=== PATIENT | female | born 1950 | race Caucasian/White ===

== ENCOUNTER 2017-12-09 18:30 | Emergency (ER) | payer MEDICAID ==
[~2017-12-09] VITALS: Ht 160 cm; Wt 70.8 kg
[~2017-12-09 18:30] MED LIST: CRESTOR10 MG PO; ENBREL; FLEXERIL PO; FOLIC ACID; LEVAQUIN 750 M750 MG PO; METHOTREXATE PO; NORCO 5-325 TA1 EACH PO; PREDNISONE; PREDNISONE50 MG PO; VENTOLIN HFA 1818 GM INH
[2017-12-09 19:24] LABS: URINE BILIRUBIN NEGATIVE (Negative); URINE BLOOD NEGATIVE (Negative); URINE CLARITY CLEAR; URINE COLOR YELLOW; URINE GLUCOSE-RANDOM NEGATIVE (Negative); URINE KETONES NEGATIVE (Negative); URINE LEUKOCYTES-REFLEX NEGATIVE (Negative); URINE NITRITE-REFLEX NEGATIVE (Negative); URINE PROTEIN NEGATIVE (Negative); URINE UROBILINOGEN 0.2 E.U./dl (0.2-1.0)
[2017-12-09 19:52] LABS: INFLUENZA A ANTIGEN None Detected (None Detect)
[2017-12-09] MEDS ORDERED: MEDROLDOSEPACK PO (20:03)
[2017-12-09] MEDS ORDERED: OSELB75 PO (20:03)
[2017-12-09] MEDS ORDERED: BENZONATATE200 MG PO (20:03)
[2017-12-09] MEDS ORDERED: VENTOLIN HFA INH8 GM INH (20:04)
[2017-12-09 20:14] VITALS: BP 128/74
== END 2017-12-09 20:17 | disposition home or self-care (01) ==
LOC: M.ERS 18:30
PROVIDERS: Nurse Practitioner
DX: J10.1 Influenza due to other identified influenza virus with other respiratory manifestations (principal); M19.90 Unspecified osteoarthritis, unspecified site; Z88.0 Allergy status to penicillin; Z88.2 Allergy status to sulfonamides

== ENCOUNTER 2018-02-08 17:21 | Inpatient (IN) | payer OTHER, MEDICAID ==
[~2018-02-08] VITALS: Ht 160 cm; Wt 73.9 kg
[~2018-02-08 17:21] MED LIST changes: +BENZONATATE200 MG PO; +MEDROLDOSEPACK PO; +OSELB75 PO; +VENTOLIN HFA INH8 GM INH
[2018-02-08 17:52] VITALS: BP 108/69
[2018-02-08] MEDS ORDERED: PREDNISONE 20 M20 MG PO (17:57)
[2018-02-08] MEDS ORDERED: ALEVE220 MG PO (17:58)
[2018-02-08] MEDS ORDERED: VITAMIN D3400 UNIT PO (17:59)
[2018-02-08 18:39] LABS: HEMATOCRIT 44.4 % (37.0-47.0); HEMOGLOBIN 14.9 gm/dL (12.0-15.0); MCH 33.3 pg (26.0-34.0); MCHC 33.5 g/dL (28.0-37.0); MCV 99.2 fL (80.0-100.0); MPV 8.3 fl. (7.2-11.1); NUCLEATED RBCS 0 /100WBC; PLATELET COUNT* 222 thou/uL (150-400); RBC 4.47 mil/uL (4.20-5.00); RDW-CV 15.2 % (10.5-14.5); WBC 13.5 thou/uL (4.0-11.0)
[2018-02-08 18:53] LABS: ANION GAP 8 mmol/L (7-16); BUN 27 mg/dL (7-18); CALCIUM 8.9 mg/dL (8.5-10.1); CHLORIDE 103 mmol/L (98-107); CO2 28 mmol/L (21-32); CREATININE 0.8 mg/dL (0.6-1.3); GLUCOSE 134 mg/dL (70-99); POTASSIUM 3.9 mmol/L (3.5-5.1); SODIUM 139 mmol/L (136-145)
[2018-02-08 19:11] LABS: ALBUMIN 2.7 g/dL (3.4-5.0); ALKALINE PHOSPHATASE 97 U/L (46-116); LIPASE 110 U/L (73-393); NT-PRO BRAIN NAT PEPTIDE 220 pg/mL (<300); SGOT 15 U/L (15-37); SGPT 16 U/L (30-65); TOTAL BILIRUBIN 0.8 mg/dL (<0.1-1.0); TOTAL PROTEIN 5.9 g/dL (6.4-8.2); TROPONIN-I LEVEL <0.06 ng/mL (<0.06)
[2018-02-08 19:15] LABS: ABSOLUTE EOSINOPHILS 0.4 thou/uL (0.0-0.7); ABSOLUTE LYMPHOCYTES 2.7 thou/uL (0.8-5.3); ABSOLUTE MONOCYTES 0.9 thou/uL (0.0-1.2); ABSOLUTE NEUTROPHILS 9.5 thou/uL (1.6-8.1)
[2018-02-08 19:17] LABS: CLUMPED PLTS OCCASIONAL
[2018-02-08 19:18] LABS: PLATELET ESTIMATE ADEQUATE
[2018-02-08 20:06] LABS: URINE BLOOD NEGATIVE (Negative); URINE CLARITY CLEAR; URINE COLOR DARK YELLOW; URINE GLUCOSE-RANDOM NEGATIVE (Negative); URINE KETONES TRACE (Negative); URINE LEUKOCYTES-REFLEX NEGATIVE (Negative); URINE PROTEIN TRACE (Negative); URINE SPECIFIC GRAVITY >= 1.030 (1.005-1.030)
[2018-02-08 20:08] LABS: URINE BILIRUBIN 1+ (Negative); URINE NITRITE-REFLEX POSITIVE (Negative)
[2018-02-08 20:09] LABS: ICTOTEST (BILI CONFIRMATORY) Negative (Negative)
[2018-02-08 20:15] LABS: BACTERIA-REFLEX >30 Many /HPF (None Seen); HYALINE CASTS 0-3 Few /LPF (None Seen); MUCUS 0-3 Light strn/LPF (None Seen); SQUAMOUS >10 Many /LPF (0-3)
[2018-02-08 20:16] LABS: URINE WBC-REFLEX 6-15 Few /HPF (0-5)
[2018-02-08 20:17] LABS: CRYSTALS None Seen /LPF (None Seen); URINE RBC None Seen /HPF (0-2)
[2018-02-08 21:14] LABS: INR 1.1; PROTIME 10.6 Seconds (9.20-11.50)
[2018-02-08 22:55] VITALS: BP 128/67
[2018-02-08 23:59] VITALS: BP 126/91
--- NOTE | 2018-02-09 00:11 | NUR ---
RECEIVED REPORT FROM ER NURSE AND PATIENT HERE FROM ER AND ADMITTED TO [facility]TH[facility] AT APPROXIMATELY 2310. VSS ON 2L 02. PATIENT ORIENTED TO ROOM AND POLICIES AND FALL EDUCATION GIVEN AND FALL AGREEMENT SIGNED. PATIENT VERBALIZED UNDERSTANDING. ASSESSMENT CHARTED. PATIENT RESTING COMFORTABLY. INSTRUCTED TO USE CALL LIGHT WHEN NEEDING ASSISTANCE. HOURLY ROUNDS MADE. WILL CONTINUE WITH PLAN OF CARE AND NURSING TO MONITOR.
--- NOTE | 2018-02-09 04:55 | NUR ---
PATIENT HAS RESTED WELL SINCE BEING ADMITTED TO UNIT. PAIN WELL CONTROLLED. VSS ON 2L 02 VIA NASAL CANNULA. NO NAUSEA OR VOMITING. IV IN RIGHT AC-NS @ 100ML/HR. PATIENT INSTRUCTED TO USE CALL LIGHT WHEN NEEDING ASSISTANCE. HOURLY ROUNDS MADE. WILL CONTINUE WITH PLAN OF CARE AND NURSING TO MONITOR.
[2018-02-09 08:57] VITALS: BP 114/67
--- NOTE | 2018-02-09 15:42 | NUR ---
SW met with pt to complete initial assessment, introduce self, and SW role. Pt lives at home with her dtr...Pt said that her dtr is in room 316 of the hospital right now. Pt has RW and was independent with ADLs and mobility prior to hospitalization. SW to continue to follow.
[2018-02-09 16:00] VITALS: BP 136/79
--- NOTE | 2018-02-09 16:28 | EKG ---
[place] [address] ELECTROCARDIOGRAM REPORT Name: JOSIE BURGESS Room: [address] ADM IN [facility].#: [id number] Admission: 02/08/18 Attend Phys: Genevieve Becerra Discharge: Date of : 48 Report #: [id number] THIS REPORT FOR: //name// [facility] ED Test Date: 2018-02-08 Test Time: 19:40:18 Pat Name: JOSIE BURGESS Department: Room: [facility] Gender: F Physical Education Instructor: AMEYA : 1950 Requested By: Anna Avitia Order Number: [id number] MD: Fabricio Palma Measurements Intervals [place] Rate: 98 P: 66 CO: 138 QRS: 55 QRSD: 77 T: 93 QT: 318 QTc: 406 Interpretive Statements Sinus rhythm Borderline repolarization abnormality Compared to ECG 11/09/2014 09:26:30 No significant changes Electronically Signed On 02-09-2018 16:28:40 CDT by Fabricio Palma [email or web address] <ELECTRONICALLY SIGNED> By: Fabricio Palma MD, [facility] 02/09/18 1628 39 39 Fabricio Palma MD, [facility] /EPI
[2018-02-09 20:00] VITALS: BP 132/75
--- NOTE | 2018-02-09 20:41 | NUR ---
ASSUMED CARES OF PT AT 0700. PT IN BED, BED IN LOW LOCKED POSITION. FALL PRECAUTIONS IN PLACE. CALL BUTTON AND PERSONAL ITEMS IN PT REACH. PT A&O X4, HRRR PER AUSCULTATION, LUNGS CLEAR TO DIMINISHED PER AUSCULTATION ON 2L O2 NC. VSS ON O2. RESPIRATIONS OCC ABOVE 20 BREATHS PER MINUTE. AFEBRILE, PERRLA, SKIN INTACT, NO EDEMA, PULSES RADIAL AND PEDAL WNL. UP ASSIST X1/SBA TO BATHROOM/BSC. NEW IV IN LEFT WRIST 22 GAUGE PATENT WITH FLUIDS INFUSING WELL. PT DENIES PAIN AND NAUSEA THIS SHIFT. NON PRODUCTIVE COUGH REPORTED/PAINFUL, MUCINEX ORDERED PER PHYSICIAN. GOOD APPETITE AND FLUID INTAKE. PT USES CALL BUTTON APPROPRIATELY. HOURLY ROUNDING COMPLETED. REPORT TO BEVERAGE DISTILLER FOR CONTINUED CARES. PT PLEASANT AND COOPERATIVE. PT PROGRESSING TOWARDS GOAL. ACTIVE SMOKER FOR MORE THAN 50 YEARS, NOT INTERESTED IN STOPPING NOW.
--- NOTE | 2018-02-09 22:07 | NUR ---
THIS NURSE ASSUMES CARE OF PT AT 1930, PT RESTING IN BED TALKING ON TELEPHONE, DENIES PAIN, ASSESSMENT COMPLETE, NO S/S ACUTE DISTRESS AT THIS TIME
[2018-02-10 05:27] LABS: HEMATOCRIT 32.9 % (37.0-47.0); MCH 33.8 pg (26.0-34.0); MCHC 33.9 g/dL (28.0-37.0); MCV 99.8 fL (80.0-100.0); MPV 8.5 fl. (7.2-11.1); RBC 3.3 mil/uL (4.20-5.00); RDW-CV 14.9 % (10.5-14.5); WBC 9.6 thou/uL (4.0-11.0)
[2018-02-10 05:37] LABS: HEMOGLOBIN 11.1 gm/dL (12.0-15.0)
[2018-02-10 05:39] LABS: CALCIUM 7.9 mg/dL (8.5-10.1); CREATININE 0.7 mg/dL (0.6-1.3); MAGNESIUM 1.8 mg/dL (1.8-2.4); POTASSIUM 4.3 mmol/L (3.5-5.1)
[2018-02-10 07:35] VITALS: BP 127/68
[2018-02-10 09:19] VITALS: BP 127/68
--- NOTE | 2018-02-10 12:20 | NUR ---
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 Pt stated she has been eating well, good appetite, usual wt is 163#. No apparent physical indicators of malnutrition. Regular diet. Alb 2.7, prealb 15.1, BG WNL. RX: prednisone, D3. H/o COPD, steroid dependency, UTI, smoker. Pt appears at low nutrition risk at this time. She did ask for some info on low K+ diet for her daughter on HD. RD will deliver some basic informative handouts for pt.
[2018-02-10 16:49] VITALS: BP 135/75
--- NOTE | 2018-02-10 17:28 | NUR ---
ASSUMED CARE OF PATIENT AFTER MORNING REPORT. ALERT AND ORIENTED X4. ASSESSMENT COMPLETED AND CHARTED. VSS ON 2 LITERS 02. PATIENT HAS HAD NO COMPLAINTS OF NAUSEA, PAIN OR SOA THIS SHIFT. FLUIDS INFUSED ORDERED UNTIL DR DISCONTINUED. ANTIBIOTICS INFUSED ORDERED. PATIENT IS RESTING COMFRTABLY IN BED AT THIS TIME. HOURLY ROUNDS MAINTAINED, CALL LIGHT IS WITHIN REACH AND NUSRSING WILL CONTINUE TO MONITOR.
[2018-02-10 22:53] VITALS: BP 150/63
--- NOTE | 2018-02-11 06:05 | NUR ---
ASSESSMENT COMPLETE. PT SLEPT THROUGH THE NIGHT WITHOUT ANY CONCERNS. PT DENIES PAIN AND N/V. PT IS ON 2L PER NC WHICH SHE STATES SHE DOES NOT WEAR AT HOME. PT HAS IV SALINE LOCKED. PT IS UP AD ADELSO WITH A STEADY GAIT. SEE ASSESSMENT AND VITALS FOR OTHER DETAILS. CALL LIGHT WITHIN REACH, WILL CONTINUE PLAN OF CARE
[2018-02-11] MEDS ORDERED: CEFUROXIME250 MG PO (08:11)
[2018-02-11 08:30] VITALS: BP 183/92
[2018-02-11 09:58] VITALS: BP 183/92
--- NOTE | 2018-02-11 10:12 | NUR ---
ASSUMED CARE OF PATIENT AFTER MORNING REPORT. ALERT AND ORIEMTED X4. ASSESSMENT COMPLETED AND CHARTED. VSS ON 2 LITERS 02. PATIENT HAD NO COMPLAINTS OF PAIN, NAUSEA, OR SOA THIS SHIFT. PATIENT ANXIOUS TO DISCHARGE AND STOOD AT THE DESK UNTIL DISCHARGE PAPERWORK WAS FINISHED IN A HURRY. PATIENT TOOK ALL PERSONAL BELONGINGS, PRESCRIPSTION AND DISCHARGE PAPERS SIGNED AND COPIES GIVE AT THE THE DESK. PATIENT LEFT WITH AN UNRELATED ADULT AND WAS AMBULATORY SHE LEFT THE HOSPITAL AT 1005.
== END 2018-02-11 10:05 | disposition home or self-care (01) | DRG 872 ==
LOC: M.ERS 17:21 → M.ORTHSURG 21:30 → M.TBA-ER 21:30 → M.ORTHSURG 22:58
PROVIDERS: Internal Medicine; Nurse Practitioner Family; ADMIT Internal Medicine
DX: A41.9 Sepsis, unspecified organism (principal); N39.0 Urinary tract infection, site not specified; E27.3 Drug-induced adrenocortical insufficiency; E44.1 Mild protein-calorie malnutrition; R18.8 Other ascites; M19.90 Unspecified osteoarthritis, unspecified site; M06.9 Rheumatoid arthritis, unspecified; I73.9 Peripheral vascular disease, unspecified; J44.9 Chronic obstructive pulmonary disease, unspecified; F17.210 Nicotine dependence, cigarettes, uncomplicated; N81.10 Cystocele, unspecified; T38.0X5A Adverse effect of glucocorticoids and synthetic analogues, initial encounter; Y92.89 Other specified places as the place of occurrence of the external cause; Z79.51 Long term (current) use of inhaled steroids; Z79.899 Other long term (current) drug therapy; Z88.0 Allergy status to penicillin; Z88.1 Allergy status to other antibiotic agents; Z88.2 Allergy status to sulfonamides

== ENCOUNTER 2018-03-21 21:37 | Observation (INO) | payer OTHER, MEDICAID ==
[~2018-03-21] VITALS: Ht 152.4 cm; Wt 76.4 kg
[~2018-03-21 21:37] MED LIST changes: +ALEVE220 MG PO; +CEFUROXIME250 MG PO; +PREDNISONE 20 M20 MG PO; +VITAMIN D3400 UNIT PO
[2018-03-21 21:45] VITALS: BP 125/84
[2018-03-21 22:27] LABS: ABSOLUTE BASOPHILS 0.1 thou/uL (0.0-0.2); ABSOLUTE EOSINOPHILS 0.3 thou/uL (0.0-0.7); ABSOLUTE LYMPHOCYTES 3.2 thou/uL (0.8-5.3); ABSOLUTE MONOCYTES 0.4 thou/uL (0.0-1.2); BASOPHILS 1.4 %; EOSINOPHILS 3.4 %; HEMOGLOBIN 14.4 gm/dL (12.0-15.0); LYMPHOCYTES 31.4 %; MCH 33.3 pg (26.0-34.0); MCHC 33.6 g/dL (28.0-37.0); MCV 99.2 fL (80.0-100.0); MONOCYTES 4.4 %; MPV 8.4 fl. (7.2-11.1); NUCLEATED RBCS 0 /100WBC; PLATELET COUNT* 244 thou/uL (150-400); POLYS 59.4 %; RBC 4.33 mil/uL (4.20-5.00); RDW-CV 14.5 % (10.5-14.5); WBC 10.1 thou/uL (4.0-11.0)
[2018-03-21 22:34] LABS: BE 2.7 mmol/L (-2 to +3); PCO2 40.5 mmHg (35.0-45.0); pH 7.442 (7.340-7.450)
[2018-03-21 22:37] LABS: ANION GAP 7 mmol/L (7-16); BUN 13 mg/dL (7-18); CALCIUM 9.3 mg/dL (8.5-10.1); CHLORIDE 102 mmol/L (98-107); CO2 30 mmol/L (21-32); GLUCOSE 146 mg/dL (70-99); POTASSIUM 3.8 mmol/L (3.5-5.1); SODIUM 139 mmol/L (136-145)
[2018-03-21 22:43] LABS: ALKALINE PHOSPHATASE 95 U/L (46-116); MAGNESIUM 1.6 mg/dL (1.8-2.4); SGOT 11 U/L (15-37); SGPT 18 U/L (30-65); TOTAL BILIRUBIN 0.4 mg/dL (<0.1-1.0); TOTAL PROTEIN 6.5 g/dL (6.4-8.2)
[2018-03-21 23:02] LABS: TROPONIN-I LEVEL <0.06 ng/mL (<0.06)
[2018-03-21 23:14] LABS: URINE BILIRUBIN NEGATIVE (Negative); URINE BLOOD NEGATIVE (Negative); URINE CLARITY CLEAR; URINE COLOR YELLOW; URINE GLUCOSE-RANDOM NEGATIVE (Negative); URINE KETONES NEGATIVE (Negative); URINE LEUKOCYTES-REFLEX TRACE (Negative); URINE PROTEIN NEGATIVE (Negative); URINE SPECIFIC GRAVITY 1.025 (1.005-1.030); URINE UROBILINOGEN 0.2 E.U./dl (0.2-1.0)
[2018-03-21 23:15] LABS: URINE NITRITE-REFLEX POSITIVE (Negative)
[2018-03-21 23:24] LABS: BACTERIA-REFLEX >30 Many /HPF (None Seen); CASTS None Seen /LPF (None Seen); MUCUS 4-6 Moderate strn/LPF (None Seen); SQUAMOUS 4-10 Moderate /LPF (0-3); URINE RBC 3-10 Few /HPF (0-2); WBC CLUMPS Few (None Seen)
[2018-03-21 23:25] LABS: CRYSTALS None Seen /LPF (None Seen)
[2018-03-21 23:41] VITALS: BP 117/68
[2018-03-22] VITALS: BP 116/62
--- NOTE | 2018-03-22 02:06 | NUR ---
PT GOT ADMITTED ON THE FLOOR FROM THE ER . ARRIVED AT 23:50 ON A STRECHER WITH O2 2 L NC. AND IV FLUID RUNNING WIDE OPEN. PT IS ALERT AWAKE ORIENTED X4. VITAL SIGNS WITHIN NORMAL LIMIT. ADMISSION ASSESSMENT AND HISTORY PERFORMED. PT DOES NOT COMPLAIN ABOUT PAIN. SINUS RYTHM ON THE WOOD CUTTER. ON 2 L NC SATURATION IS 96%. LUNG SOUNDS ARE WHEEZY, SO I STARTED THE NS AT 150CC.HR ORDERED ON DEC. IV ANTIBIOTIC RUNNING WELL THROUGH LEFT FOREARM LINE WHICH IS PATENT. TEMPERATURE IS NORMAL. 98.5. PT SAYS THAT SHE IS A CURRENT HEAVY SMOKER, COMMUNICATED NEED TO STOP SMOKING. SHE REFUSES SCDS. NEW ADMIT ORDERS ARE ENTERED ON COMPUTER. BLOOD GAS LABS ARE CRITICAL. LACTIC ACID 2.5. TROPONIN AND EKG Q 6 HOURS TO BE MONITORED. WILL CONTINUE TO MONITOR
[2018-03-22 04:24] VITALS: BP 146/59
--- NOTE | 2018-03-22 06:20 | NUR ---
PT IS CURRENTLY SLEEPING. IV NS RUNNING AT 150CC/HR.
[2018-03-22 08:00] VITALS: BP 128/80
[2018-03-22] MEDS ORDERED: PREDNISONE 10 M10 MG PO (09:00)
[2018-03-22] MEDS ORDERED: CEFUROXIME250 MG PO (09:00)
--- NOTE | 2018-03-22 10:30 | NUR ---
MET WITH PT TO DISCUSS HOME SITUATION/DC PLANNING. PT LIVES [place] DTR. SHE IS NORMALLY INDEPEDENT AND ACTIVE. HAS WALKER BUT DOESN'T USE IT. SHE SEES A DR [facility]. K PT PLASN TO RETURN HOME AT DC. DENIES NEEDS
[2018-03-22 11:16] VITALS: BP 128/80
[2018-03-22 11:19] VITALS: BP 128/80
[2018-03-22 11:28] VITALS: BP 144/67
--- NOTE | 2018-03-22 11:43 | EKG ---
[place] [address] ELECTROCARDIOGRAM REPORT Name: JOSIE BURGESS Room: [address]#: [id number] Admission: 03/21/18 Attend Phys: Porfirio Avila Discharge: Date of : 48 Report #: [id number] THIS REPORT FOR: //name// [facility] ED Test Date: 2018-03-21 Test Time: 22:34:11 Pat Name: JOSIE BURGESS Department: Room: Gender: F Contact Officer: : 1950 Requested By: Leyda Menchaca Order Number: [id number] MD: Jean Arenas Measurements Intervals [place] Rate: 91 P: 31 NV: 137 QRS: 9 QRSD: 81 T: 63 QT: 373 QTc: 459 Interpretive Statements Sinus rhythm Minimal ST depression, lateral leads Compared to ECG 02/08/2018 19:40:18 ST (T wave) deviation now present Electronically Signed On 03-22-2018 11:43:24 CDT by Jean Arenas [email or web address] <ELECTRONICALLY SIGNED> By: Jean Arenas MD, [facility] 03/22/18 1143 [id number] Jean Arenas MD, [facility] /EPI
--- NOTE | 2018-03-22 12:48 | NUR ---
RECEIVED REPORT FROM INDERJIT LOPEZ. ASSUMED CARE OF PT AROUND 729. PT A&OX4, VSS, O2 SAT 94% ON 2L NC - PT STATES SHE DOES NOT WEAR O2 AT HOME. O2 SATS >90% ON RA. CAMPAIGN DEVELOPER IN PLACE TRACING SR. AM ASSESSMENT AND VITALS COMPLETED CHARTED. PT DENIES PAIN OR DISCOMFORT. PT EATING AND DRINKIG WITHOUT ISSUE. DISCHHARGE ORDERS RECEIVED. DISCHARGE COMPLETED CHARTED. DISCHARGE SUMMARY AND CARE NOTES GONE OVER WITH THE PT - PT COMMUNICATES UNDERSTANDING. SCRIPTS GIVEN. PT AWARE TO COMPLETED PREDNISONE TAPER PRIOR TO RESUMING REGULAR DAILY DOSE OF PREDNISONE. PT AWARE TO TAKE ALL ANTIBIOTIC. IV AND CAMPAIGN DEVELOPER REMOVED. ALL BELONGINGS GATHERED AND SENT WITH THE PT. PT LEFT UNIT IN WC WITH NURSING STAFF. PT LEFT HOSPITAL WITH DAUGHTER IN CAR.
== END 2018-03-22 13:04 | disposition home or self-care (01) ==
LOC: M.ERS 21:37 → M.TBA-ER 23:04 → M.2W 23:04
PROVIDERS: Personal Emergency Response Attendant; ADMIT Internal Medicine
DX: M25.50 Pain in unspecified joint (principal); M06.9 Rheumatoid arthritis, unspecified; J44.9 Chronic obstructive pulmonary disease, unspecified; I73.9 Peripheral vascular disease, unspecified; E87.2 Acidosis; M80.08XA Age-related osteoporosis with current pathological fracture, vertebra(e), initial encounter for fracture; Z79.899 Other long term (current) drug therapy

== ENCOUNTER 2018-08-03 21:57 | Emergency (ER) | payer OTHER, MEDICAID ==
[~2018-08-03] VITALS: Ht 160 cm; Wt 74.4 kg
[~2018-08-03 21:57] MED LIST changes: +PREDNISONE 10 M10 MG PO
[2018-08-03] MEDS ORDERED: PREDNISONE 10 M10 MG PO (22:10)
[2018-08-03] MEDS ORDERED: TYLENOL325 MG (22:11)
[2018-08-03] MEDS ORDERED: CEFDINIR300 MG PO (22:39)
[2018-08-03] MEDS ORDERED: LIDOCAINE VISC100 ML PO (22:40)
[2018-08-03 23:35] VITALS: BP 147/89
== END 2018-08-03 23:35 | disposition home or self-care (01) ==
LOC: M.ERS 21:57
DX: H66.91 Otitis media, unspecified, right ear (principal); J20.9 Acute bronchitis, unspecified; M19.90 Unspecified osteoarthritis, unspecified site; J44.9 Chronic obstructive pulmonary disease, unspecified; F17.210 Nicotine dependence, cigarettes, uncomplicated; Z88.0 Allergy status to penicillin; Z88.2 Allergy status to sulfonamides; Z91.011 Allergy to milk products

== ENCOUNTER 2018-11-15 19:05 | Emergency (ER) | payer OTHER, MEDICAID ==
[~2018-11-15] VITALS: Ht 160 cm; Wt 74.8 kg
[~2018-11-15 19:05] MED LIST changes: +CEFDINIR300 MG PO; +LIDOCAINE VISC100 ML PO; +TYLENOL325 MG
[2018-11-15 20:13] LABS: INFLUENZA A ANTIGEN None Detected (None Detect); INFLUENZA B ANTIGEN None Detected (None Detect)
[2018-11-15] MEDS ORDERED: TUSSIONEX PENN115 ML PO (20:33)
[2018-11-15] MEDS ORDERED: PROAIR HFA8.5 GM INH (20:33)
[2018-11-15] MEDS ORDERED: ZPAK PO (20:33)
[2018-11-15 20:51] VITALS: BP 141/87
== END 2018-11-15 20:52 | disposition home or self-care (01) ==
LOC: M.ERS 19:05
PROVIDERS: Emergency Medicine
DX: R05 Cough (principal); R11.10 Vomiting, unspecified; M06.9 Rheumatoid arthritis, unspecified; J44.9 Chronic obstructive pulmonary disease, unspecified; I73.9 Peripheral vascular disease, unspecified; F17.210 Nicotine dependence, cigarettes, uncomplicated; Z88.0 Allergy status to penicillin; Z88.1 Allergy status to other antibiotic agents; Z88.2 Allergy status to sulfonamides; Z91.011 Allergy to milk products

== ENCOUNTER 2019-07-08 15:27 | Emergency (ER) | payer OTHER, MEDICAID ==
[~2019-07-08] VITALS: Ht 160 cm; Wt 66.7 kg
[~2019-07-08 15:27] MED LIST changes: +PROAIR HFA8.5 GM INH; +TUSSIONEX PENN115 ML PO; +ZPAK PO
[2019-07-08] MEDS ORDERED: OXYCODONE HCL 55 MG PO (18:08)
[2019-07-08] MEDS ORDERED: IBUPROFEN 800800 M1 PO (18:08)
[2019-07-08 18:10] VITALS: BP 128/80
== END 2019-07-08 18:10 | disposition home or self-care (01) ==
LOC: M.ERS 15:27
DX: G89.18 Other acute postprocedural pain (principal); M06.9 Rheumatoid arthritis, unspecified; M81.0 Age-related osteoporosis without current pathological fracture; J44.9 Chronic obstructive pulmonary disease, unspecified; I73.9 Peripheral vascular disease, unspecified; F17.210 Nicotine dependence, cigarettes, uncomplicated; Z91.011 Allergy to milk products; Z88.0 Allergy status to penicillin; Z88.6 Allergy status to analgesic agent; Z88.1 Allergy status to other antibiotic agents